=== PATIENT | female | born 1975 | race Caucasian/White ===

== ENCOUNTER 2016-08-18 21:19 | Emergency (ER) | payer OTHER ==
[2016-08-18 22:11] LABS: HEMOGLOBIN 13.1 gm/dl (12.3-15.3)
[2016-08-18 22:33] LABS: BUN/CREATININE RATIO 13 (0-10)
== END 2016-08-19 03:33 | disposition left against medical advice (07) ==
LOC: ER1 21:19
PROVIDERS: Family Medicine
DX: R10.2 Pelvic and perineal pain (principal); R07.9 Chest pain, unspecified; R11.0 Nausea; F17.200 Nicotine dependence, unspecified, uncomplicated; Z88.5 Allergy status to narcotic agent
CPT/HCPCS: 36415; 76830; 80053; 81001; 82150; 82550; 82553; 83690; 83874; 84484; 84703; 85025; 85379; 96374; 96375; 99284; J1885; J2405

== ENCOUNTER 2016-09-28 14:50 | Emergency (ER) | payer OTHER ==
[2016-09-28 18:33] LABS: HEMOGLOBIN 14.5 gm/dl (12.3-15.3); RED BLOOD COUNT 4.42 M/UL (4.00-5.10); WHITE BLOOD COUNT 7.6 K/UL (4.5-11.0)
[2016-09-28 18:56] LABS: BUN/CREATININE RATIO 10 (0-10)
== END 2016-09-28 20:40 | disposition home or self-care (01) ==
LOC: ER1 14:50
PROVIDERS: Student in an Organized Health Care Education/Training Program
DX: R51 Headache (principal); R20.2 Paresthesia of skin; F17.200 Nicotine dependence, unspecified, uncomplicated; Z88.5 Allergy status to narcotic agent
CPT/HCPCS: 36415; 70450; 71010; 80053; 81001; 82550; 82553; 83874; 84484; 84703; 85025; 85610; 85730; 87086; 93005; 99284

== ENCOUNTER → 2016-09-28 | Outpatient (CLI) | payer OTHER | LOC: KOH-I 08:30 | DX: F17.200 Nicotine dependence, unspecified, uncomplicated (principal); Z98.890 Other specified postprocedural states; R91.8 Other nonspecific abnormal finding of lung field; R91.1 Solitary pulmonary nodule | CPT/HCPCS: 71270; Q9962 ==

== ENCOUNTER → 2016-10-04 | Outpatient (CLI) | payer OTHER | LOC: US 13:00 | DX: R20.2 Paresthesia of skin (principal) | CPT/HCPCS: 93880 ==

== ENCOUNTER 2016-11-23 20:45 | Emergency (ER) | payer OTHER ==
[2016-11-23 22:54] LABS: HEMOGLOBIN 13.9 gm/dl (12.3-15.3); RED BLOOD COUNT 4.25 M/UL (4.00-5.10); WHITE BLOOD COUNT 9.6 K/UL (4.5-11.0)
[2016-11-23 23:11] LABS: BUN/CREATININE RATIO 13 (0-10)
== END 2016-11-24 00:55 | disposition home or self-care (01) ==
LOC: ER1 20:45
PROVIDERS: Radiology Radiation Oncology
DX: R07.89 Other chest pain (principal); F17.200 Nicotine dependence, unspecified, uncomplicated
CPT/HCPCS: 36415; 71010; 80053; 82550; 82553; 83874; 84484; 85025; 93005; 99285

== ENCOUNTER → 2016-12-04 | Outpatient (CLI) | payer OTHER | LOC: KOH-I 14:52 | DX: R05 Cough (principal) | CPT/HCPCS: 71020 ==